=== PATIENT | male | born 1980 | race Caucasian/White ===

== ENCOUNTER 2023-09-03 15:21 | Outpatient (AMB) | payer OTHER, SELFPAY ==
--- NOTE | 2023-09-03 15:25 | A.OFFPC_ITS ---
Vital Signs 3 09/03/23 15:26 Height 6 ft Weight 235 lb BMI 31.9 BP 120/80 Blood Pressure Location Lt brachial Position Sitting Pulse 84 Pulse Source Pulse Oximeter Pulse Oximetry (%) 98 Intake Visit Reasons: New patient-discuss anxiety meds Intake Note: Patient is a new patient here to establish care for Anxiety. Lead Quality Control Technician Required: No Accompanied by: Self / Same As Patient Allergies Seasonal Allergies Allergy (Mild, Verified 09/03/23 15:45) Unknown Medication List - Last Reconciled 09/03/23 by Beck Rogers PA-C No Known Home Meds Tobacco use date assessed: 09/03/23 Dental Screening Dental Screen Date: 09/03/23 Did you have a dental visit in the last 12 months?: Yes Was dental information given to patient?: Patient has dentist HPI New patient-discuss anxiety meds 2 HPI0 Details Patient is a 43-year-old male here today for a new patient visit/ PE. Previous PCP was Dr Vera . Patient's past medical history significant for generalized anxiety disorder, ADHD and obesity. Concerns--> reports having bilateral knee cap pain worse when going up and down stairs. He otherwise does not have any pain or instability in his knees. He he has recently restarted going back to the gym and will be working on strengthening his lower extremities. Also report having right Trapazoid region and lower back pain intermittent . uses CBD cream and massage machine .. Generalized anxiety disorder: Was on fluoxetine previously though has stopped using this medication. Has not seen a med provider in quite a few years. Also has a diagnosis of ADHD and was on Adderall in the past. Has also stopped using this medication and is interested in reestablishing care with a mental health med provider to restart being treated for ADHD. Vaccine : Up-to-date with tetanus vaccine, up-to-date with COVID vaccine declines flu vaccine. [facility] Medical History Mood disorder Asthma Social History (Updated 09/03/23 @ 15:50 by Beck Rogers PA-C) Housing: House Alcohol intake: current Alcohol intake frequency: holidays/special occasions only Alcohol type: beer Patient Tobacco Use Status: Never used Tobacco e-Cigarette/Vaping Use: Never Used service: No Current occupational status: employed Current occupation: licensed loan officer Cognitive needs: No Hearing needs: No Vision needs: No Questionnaire PHQ-9 Over the last 2 weeks, how often have you been bothered by any of the following problems? 1. Little interest or pleasure in doing things: not at all 2. Feeling down, depressed, or hopeless: not at all 3. Trouble falling or staying asleep, or sleeping too much: not at all 4. Feeling tired or having little energy: not at all 5. Poor appetite or overeating: not at all 6. Feeling bad about yourself - or that you are a failure or have let yourself or your family down: not at all 7. Trouble concentrating on things, such as reading the newspaper or watching television: not at all 8. Moving or speaking so slowly that other people could have noticed. Or the opposite - being so fidgety or restless that you have been moving around a lot more than usual: not at all 9. Thoughts that you would be better off or of hurting yourself in some way: not at all Total score: 0 Depression Screening Interpretation: Negative Depression Screening Done: Yes 67229 - PHQ-9 Billing: Yes Source: Developed by Drs. Lizandro Mendez, Keri Esteban, Surinder Nevarez and colleagues, with an educational alden from [employer]. Thrive Questionnaire Date Thrive assessed: 09/03/23 I am a: Patient What is your living situation today?: I have a steady place to live Within the past 12 months, did the food you bought not last and you didn't have the money to get more?: Never true Within the past 12 months, did you worry whether your food would run out before you got money to buy more?: Never true Do you have trouble paying for medicines?: No Do you have trouble getting transportation to medical appointments?: No Do you have trouble paying your heating and electricity bill?: No Do you have trouble taking care of your child, family member or friend?: No Do you have trouble with day-to-day activities such as bathing, preparing meals, shopping, managing finances, etc.?: No Are you currently unemployed and looking for a job?: No Are you interested in more education?: No Please select the resources that you would like help with: None Currently or been in a relationship where the following occur: no concerns reported AUDIT C Alcohol Use Questionnaire (AUDIT-C) 1. How often do you have a drink containing alcohol?: Monthly or less 2. How many drinks containing alcohol do you have on a typical day when you are drinking?: 1 or 2 3. How often do you have six or more drinks on one occasion?: Never Total Score: 1 KHUSHI-7 AMB Questionnaire KHUSHI-7 Date KHUSHI - 7 assessed: 09/03/23 Feeling nervous, anxious, or on edge: 0 = Not at all Not being able to stop or control worryin = Not at all Worrying too much about different things: 0 = Not at all Trouble relaxin = Not at all Being so restless that it is hard to sit still: 0 = Not at all Becoming easily annoyed or irritable: 0 = Not at all Feeling afraid as if something awful might happen: 0 = Not at all Total KHUSHI-7 score (0-4 normal; 5-9 mild; 10-14 moderate; 15-21 severe): 0 Source: Developed by Drs. Lizandro Mendez, Keri Esteban, Surinder Nevarez and colleagues, with an educational alden from [employer]. KHUSHI-7 Assessment Billing KHUSHI-7 Assessment Tool: KHUSHI-7 Assessment 19115 Review of Systems Const Denies excessive sweating, Denies fatigue and Denies headache(s) Eyes Denies loss of vision ENT Denies vertigo, Denies dizziness, Denies headache(s) and Denies sore throat Card Denies chest pain, Denies leg edema and Denies lightheadedness Resp Denies cough, Denies hemoptysis and Denies wheezing GI Denies abdominal pain, Denies melena, Denies constipation, Denies diarrhea and Denies vomiting Denies dysuria, Denies urinary frequency and Denies urinary urgency Musc Denies arthralgias, Denies joint swelling, Denies numbness and Denies tingling Skin/Breast Denies rash and Denies skin ulcer Neuro Denies Abnormal speech present, Denies behavioral changes, Denies vertigo, Denies dizziness, Denies headache(s), Denies loss of vision, Denies memory loss, Denies numbness and Denies tingling Psych Denies anxiety, Denies behavioral changes, Denies depression, Denies memory loss and Denies panic attacks Endo Denies excessive sweating, Denies fatigue, Denies flushing, Denies polydipsia and Denies polyuria Franck/Lymph Denies easy bleeding and Denies easy bruising Aller/Immun Denies wheezing Physical exam (Primary Care) Vital Signs: Last Vital Signs Pulse 84 09/03/23 15:26 BP 120/80 09/03/23 15:26 Pulse Ox 98 09/03/23 15:26 BMI result Body Mass Index 31.9 BMI Assessment/Plan discussion: High Tobacco/Smoking Status: Tobacco use Status Tobacco use date assessed 09/03/23 09/03/23 15:33 Patient Tobacco Use Status Never used Tobacco 09/03/23 15:50 e-Cigarette/Vaping Use Never Used 09/03/23 15:50 PHQ-9: PHQ-9 Score PHQ-9: Total score 0 09/03/23 16:05 Depression Screening Interpretation: Negative Thrive Assessment: Date of Thrive Assessment Date Thrive assessed 09/03/23 09/03/23 15:33 Currently or been in a relationship where the following occur: no concerns reported Const Other: Obese General: healthy appearing, no acute distress, alert and awake Nutritional Appearance: well nourished Orientation/consciousness: oriented to person, oriented to place and oriented to time [facility] Head: Yes normocephalic Head images: 2 1. PEDUNCULATED SKIN LESION NOTED IN THE REGION OUTLINED Ears: TM's normal bilaterally General nose exam: Normal nasal mucous membranes and turbinates present Face and sinus: No sinus tenderness Mouth: Normal oral and palatal mucosa present and tongue normal Teeth and gingiva: dentition normal and gingiva normal Throat: Yes posterior oropharynx normal, Yes tonsils normal and Yes uvula midline Eyes Conjunctivae: conjunctivae normal Sclerae: sclerae normal Pupils: Equal, round and reactive pupils present EOM: EOMs intact bilaterally Direct Ophthalmoscopy: No no photophobia Neck Neck: Yes no lymphadenopathy and Yes no JVD Thyroid: Thyroid normal Carotids: no bruits Chest Chest palpation & inspection: no tenderness Resp Effort & Inspection: normal respiratory effort and not tachypneic Auscultation: no crackles, no rales, no rhonchi and no wheezes Cardio Jugular venous distension: no JVD Rate: regular rate Rhythm: regular rhythm Heart sounds: no murmurs and normal S1 and S2 Bruits: no carotid bruits Peripheral pulses: Peripheral pulses 2+ throughout GI Inspection: Yes normal to inspection, No abdominal wall ecchymosis and No visible herniation Palpation (GI): Soft to palpation, nontender, no hepatomegaly and no splenomegaly Auscultation: normal bowel sounds General: Yes no CVA tenderness Back/Spine/Pelvis Back: no CVA tenderness and No back tenderness Cervical Spine: cervical ROM normal Thoracic/Lumbar Spine: thoracic and lumbar spine normal to inspection, straight leg raise negative bilaterally, No thoraco-lumbar ROM limited and No lumbar spinal tenderness Skin General skin exam: no rashes or lesions noted and dry skin Lesions: no lesions Rashes: no rashes Wounds: no wounds Neuro General: oriented to person, oriented to place and oriented to time Cranial nerves: Yes Equal, round and reactive pupils present Cognition (Neuro): normal cognition Speech: No Abnormal speech present Gait exam (Neuro): Normal gait present Motor exam (neuro): no tremor noted Extrem Right upper extremity: full ROM Left upper extremity: full ROM Right lower extremity: full ROM; no edema Left lower extremity: full ROM; no edema Psych Appearance: grossly normal Mental Status: mental status grossly normal Speech and movement: Normal speech and movement present Affect: normal affect Attitude: cooperative Thought process: Normal thought process present Assessment and Plan Assessment & Plan (1) Annual physical exam: Code(s): Z00.00 - Encounter for general adult medical examination without abnormal findings (2) ADHD: Code(s): F90.9 - Attention-deficit hyperactivity disorder, unspecified type Qualifiers: Attention deficit-hyperactivity disorder type: predominantly inattentive Qualified Code(s): F90.0 - Attention-deficit hyperactivity disorder, predominantly inattentive type (3) KHUSHI (generalized anxiety disorder): Code(s): F41.1 - Generalized anxiety disorder Plan: Patient has a longstanding history of generalized anxiety disorder. Was on SSRI therapy in the past with fluoxetine which did help. He would like to restart this medication and start seeing a mental health therapist in near future. Will follow-up in 4-5 weeks to evaluate effectiveness of medication. (4) Patella-femoral syndrome: Code(s): M22.2X9 - Patellofemoral disorders, unspecified knee Qualifiers: Laterality: bilateral Qualified Code(s): M22.2X1 - Patellofemoral disorders, right knee; M22.2X2 - Patellofemoral disorders, left knee Plan: Patient has bilateral knee cap pain worse when going up and downstairs most consistent with a patella femoral syndrome. Will likely improve with strengthening his lower extremities. (5) Screening for diabetes mellitus (DM): Code(s): Z13.1 - Encounter for screening for diabetes mellitus (6) Benign mole: Code(s): D22.9 - Melanocytic nevi, unspecified Plan: Has a large pedunculated skin lesion over the back of his neck. Often gets caught on clothing and during hair cut. He would like removal of this lesion. (7) Pain of right scapula: Code(s): M89.8X1 - Other specified disorders of bone, shoulder Plan: Reports some pain in the right upper trapezoid and scapular region on intermittent basis. Offered physical therapy though patient would like to hold off on work on his own physical therapy at the gym. Orders: Orders 2 Complete Blood Count no Diff 09/03/23 Z13.1 - Encounter for screening for diabetes mellitus Comprehensive [place]. Panel Fast 09/03/23 Z13.1 - Encounter for screening for diabetes mellitus Referrals 2 Dermatology Referral D22.9 - Melanocytic nevi, unspecified Medications: New 2 lorazepam 0.5 mg PO DAILY 5 days PRN 5 tabs 0RF anxiety F41.1 - Generalized anxiety disorder fluoxetine 10 mg PO DAILY 30 days 30 caps 3RF F41.1 - Generalized anxiety disorder Coding Level of Care Code New Pt Prev Care 40-64y([id number]) Diagnoses Annual physical exam Z00.00 Attention deficit hyperactivity disorder (ADHD), predominantly inattentive type F90.0 Attention deficit-hyperactivity disorder type: predominantly inattentive KHUSHI (generalized anxiety disorder) F41.1 Patellofemoral pain syndrome of both knees M22.2X1; M22.2X2 Laterality: bilateral Screening for diabetes mellitus (DM) Z13.1 Benign mole D22.9 Pain of right scapula M89.8X1 Additional Codes KHUSHI-7 Assessment Billing - KHUSHI-7 Assessment Tool: KHUSHI-7 Assessment 12097 ([id number])
[2023-09-03 15:26] VITALS: BP 120/80; PULSE 84; O2SAT 98; BMI 31.9
== END 2023-09-03 16:18 | disposition home or self-care (01) ==
PROVIDERS: PCP Physician Assistant; Visit Provider Physician Assistant
DX: Z00.00 Encounter for general adult medical examination without abnormal findings (principal); F90.0 Attention-deficit hyperactivity disorder, predominantly inattentive type; F41.1 Generalized anxiety disorder; M22.2X1 Patellofemoral disorders, right knee; M22.2X2 Patellofemoral disorders, left knee; Z13.1 Encounter for screening for diabetes mellitus; D22.9 Melanocytic nevi, unspecified; M89.8X1 Other specified disorders of bone, shoulder
CPT/HCPCS: 99386